=== PATIENT | female | born 1960 | race Two or more races ===

== ENCOUNTER → 2017-09-29 | Outpatient (CLI) | payer BC ==
[~2017-09-29] MED LIST: DICL2SOL TD; ESTR42.53 TD; HYDR-3245 PO; HYDR200T PO; IBAN150T PO; IBUP1TAB76 PO; LIFI1DRO EACHEYE; OLOP2.5D EACHEYE; SUMA100T4 PO; ZOLP10TA PO; [UNRECOGNIZED DRUG - OTHER] EACHEYE
[2017-09-29 11:02] LABS: HEMATOCRIT 43.3 % (34.6-47.8); HEMOGLOBIN 14.8 g/dL (11.7-16.4)
[2017-09-29 11:03] LABS: PATH.CAST-FLAG NOT PRESENT; SPERM-FLAG NOT PRESENT; SRC-FLAG NOT PRESENT; XTAL-FLAG NOT PRESENT; YLC-FLAG NOT PRESENT
[2017-09-29 11:15] LABS: BLOOD UREA NITROGEN 19 mg/dL (7-18)
== END | disposition home or self-care (01) ==
LOC: STAR 09:44
PROVIDERS: ATTEND Neurological Surgery
DX: Z01.818 Encounter for other preprocedural examination (principal); J98.4 Other disorders of lung; R94.31 Abnormal electrocardiogram [ECG] [EKG]; M51.36 Other intervertebral disc degeneration, lumbar region; M51.37 Other intervertebral disc degeneration, lumbosacral region; R79.1 Abnormal coagulation profile
CPT/HCPCS: 36415; 71020; 80048; 81001; 85025; 85610; 85730; 87077; 87086; 93005

== ENCOUNTER 2017-10-04 07:00 | Inpatient (IN) | payer BC ==
[~2017-10-04] VITALS: Ht 172.7 cm; Wt 65.4 kg
[2017-10-07] MEDS ORDERED: THROMBIN 5,000 UNIT VIAL TP ONE (06:04)
[2017-10-07] MEDS ORDERED: BACITRACIN 50,000 UNIT ONE (06:04)
[2017-10-07] MEDS ORDERED: LACTATED RINGERS 1,000 ML IV SCH (06:09)
[2017-10-07] MEDS ORDERED: PROPOFOL 50 ML ONE (06:28)
[2017-10-07] MEDS ORDERED: FENTANYL PF 250 MCG/5ML ONE (06:29)
[2017-10-07] MEDS ORDERED: MIDAZOLAM 1 MG/ML, 2ML ONE (06:29)
[2017-10-07] MEDS ORDERED: MIDAZOLAM 1 MG/ML, 2ML IV PRN (08:00)
[2017-10-07] MEDS ORDERED: hydrALAzine 20 MG/ML, 1ML IV PRN (08:00)
[2017-10-07] MEDS ORDERED: PROMETHAZINE 25 MG/ML, 1ML IV PRN (08:00)
[2017-10-07] MEDS ORDERED: ONDANSETRON 2MG/ML, 2ML IVPush PRN ×2 (08:00→09:00)
[2017-10-07] MEDS ORDERED: ALBUTEROL SULFATE 2.5 MG/3 ML NPPB PRN (08:00)
[2017-10-07] MEDS ORDERED: ACETAMINOPHEN 325 MG TABLET PO PRN (08:00)
[2017-10-07] MEDS ORDERED: HYDROcodone/APAP 7.5-325MG/15ML UDC PO PRN (08:00)
[2017-10-07] MEDS ORDERED: EPHEDRINE 50 MG/ML, 1ML IVPush PRN (08:00)
[2017-10-07] MEDS ORDERED: METOPROLOL 1 MG/ML, 5ML IV PRN (08:00)
[2017-10-07] MEDS ORDERED: LABETALOL 5MG/ML, 20ML IV PRN (08:00)
[2017-10-07] MEDS ORDERED: OXYcodone 5 MG/5 ML ORAL.SOL UDC PO PRN (08:00)
[2017-10-07] MEDS ORDERED: CEFAZOLIN 1,000 MG ONE (08:19)
[2017-10-07] MEDS ORDERED: SUCCINYLCHOLINE 20 MG/ML, 10ML ONE (08:19)
[2017-10-07] MEDS ORDERED: PROPOFOL 10 MG/ML, 20ML ONE (08:19)
[2017-10-07] MEDS ORDERED: ONDANSETRON 2MG/ML, 2ML ONE (08:19)
[2017-10-07] MEDS ORDERED: DEXAMETHASONE 4 MG/ML, 1ML ONE (08:19)
[2017-10-07] MEDS ORDERED: ROCURONIUM 10 MG/ML,10ML ONE (08:19)
[2017-10-07] MEDS ORDERED: FENTANYL PF 100 MCG/2ML ONE ×2 (08:47→09:38)
[2017-10-07] MEDS: FENTANYL PF 100 MCG/2ML IV PRN ×4 (08:50→10:00)
[2017-10-07] MEDS ORDERED: MEPERIDINE/PF 50 MG/ML ONE (08:58)
[2017-10-07] MEDS ORDERED: ZOLPIDEM 10MG TABLET PO PRN (09:00)
[2017-10-07] MEDS ORDERED: PROMETHAZINE 25 MG/ML, 1ML IM PRN (09:00)
[2017-10-07] MEDS ORDERED: HYDROmorphone 2 MG/ML, 1ML ONE (09:00)
[2017-10-07] MEDS: SODIUM CHLORIDE FLUSH 10ML SYR IVF SCH ×2 (09:00→21:00)
[2017-10-07] MEDS ORDERED: HYDROcodone/APAP 5/325 TABLET PO PRN (09:00)
[2017-10-07] MEDS ORDERED: PHARMACY MAY ADJ FOR RENAL FX MC PRN (09:00)
[2017-10-07] MEDS ORDERED: BISACODYL 10 MG SUPP PR PRN (09:00)
[2017-10-07] MEDS ORDERED: OXYcodone/APAP 5/325MG TABLET PO PRN (09:00)
[2017-10-07] MEDS ORDERED: METHOCARBAMOL 750 MG TABLET PO PRN (09:00)
[2017-10-07] MEDS ORDERED: [UNRECOGNIZED DRUG - OTHER] EACHEYE PRN (09:00)
[2017-10-07] MEDS: HYDROXYCHLOROQUINE 200 MG TABLET PO SCH ×2 (09:00→21:45)
[2017-10-07] MEDS ORDERED: DIPHENHYDRAMINE 50 MG/ML, 1ML IVPush PRN (09:00)
[2017-10-07] MEDS: HYDROmorphone 1 MG/ML, 1ML IV PRN ×4 (09:00→09:26)
[2017-10-07] MEDS ORDERED: SUMATRIPTAN 100 MG TABLET PO PRN (09:00)
[2017-10-07] MEDS: DIAZEPAM 5 MG/ML, 2ML IVPush PRN ×2 (09:23→09:40)
[2017-10-07] MEDS ORDERED: HYDROcodone/APAP 7.5-325MG/15ML UDC ONE (09:56)
[2017-10-07] MEDS: morphine SULFATE 10 MG/ML, 1ML IVPush PRN ×4 (11:02→21:46)
[2017-10-07] MEDS: D5%-0.9% NACL+KCL 20MEQ 1,000 ML IV SCH ×2 (11:42→23:00)
[2017-10-07] MEDS: HYDROcodone/APAP 10/325 MG TABLET PO PRN ×3 (13:23→21:46)
[2017-10-07 14:25] VITALS: BP 102/56
[2017-10-07] MEDS: CEFAZOLIN PMX 1GM/50ML 50 ML IVPB SCH ×2 (16:01→23:52)
[2017-10-07 21:37] VITALS: BP 103/53
[2017-10-08] MEDS: HYDROcodone/APAP 10/325 MG TABLET PO PRN ×6 (01:27→23:02)
[2017-10-08 02:08] VITALS: BP 121/54
[2017-10-08] MEDS: ENOXAPARIN 40 MG/0.4 ML SQ SCH (05:46)
[2017-10-08 08:24] VITALS: BP 104/64
[2017-10-08] MEDS: SODIUM CHLORIDE FLUSH 10ML SYR IVF SCH ×2 (09:00→20:59)
[2017-10-08] MEDS: HYDROXYCHLOROQUINE 200 MG TABLET PO SCH ×2 (09:46→20:59)
[2017-10-08] MEDS: D5%-0.9% NACL+KCL 20MEQ 1,000 ML IV SCH ×2 (09:51→17:50)
[2017-10-08] MEDS: SENNA/DOCUSATE TABLET PO PRN (11:52)
[2017-10-08 15:08] VITALS: BP 90/53
[2017-10-08 22:55] VITALS: BP 100/60
[2017-10-09] MEDS: HYDROcodone/APAP 10/325 MG TABLET PO PRN ×3 (02:31→10:25)
[2017-10-09 03:52] VITALS: BP 103/67
[2017-10-09] MEDS: D5%-0.9% NACL+KCL 20MEQ 1,000 ML IV SCH ×2 (05:00→07:44)
[2017-10-09] MEDS: ENOXAPARIN 40 MG/0.4 ML SQ SCH (06:10)
[2017-10-09] MEDS: SENNA/DOCUSATE TABLET PO PRN (07:43)
[2017-10-09] MEDS: HYDROXYCHLOROQUINE 200 MG TABLET PO SCH (07:43)
[2017-10-09] MEDS: SODIUM CHLORIDE FLUSH 10ML SYR IVF SCH (07:44)
[2017-10-09 07:46] VITALS: BP 101/64
== END 2017-10-09 10:41 | disposition home or self-care (01) | DRG 460 ==
LOC: EDSEX → ORIP 10-07 05:22 → 4NOR 10-07 10:25
PROVIDERS: ADMIT Neurological Surgery; ATTEND Neurological Surgery
PROC: 0SB40ZZ Excision of Lumbosacral Disc, Open Approach (ICD-10-PCS; 2017-10-07)
PROC: 4A11X4G Monitoring of Peripheral Nervous Electrical Activity, Intraoperative, External Approach (ICD-10-PCS; 2017-10-07)
PROC: 0SG30A0 Fusion of Lumbosacral Joint with Interbody Fusion Device, Anterior Approach, Anterior Column, Open Approach (ICD-10-PCS; principal; 2017-10-07 07:00)
DX: M51.17 Intervertebral disc disorders with radiculopathy, lumbosacral region (principal); M48.57XA Collapsed vertebra, not elsewhere classified, lumbosacral region, initial encounter for fracture; J45.909 Unspecified asthma, uncomplicated; G43.909 Migraine, unspecified, not intractable, without status migrainosus; M48.07 Spinal stenosis, lumbosacral region; G89.29 Other chronic pain; M54.5 Low back pain
CPT/HCPCS: 72100; 74000; C1713; J0690; J1100; J1170; J1650; J2250; J2405; J2704; J3010; J3360; C1762; J0330; J2270; J3480; J7120